=== PATIENT | male | born 1985 | race Caucasian/White ===

== ENCOUNTER 2024-05-28 17:19 | Inpatient (IN) | payer OTHER ==
[~2024-05-28] VITALS: Ht 172.7 cm; Wt 73.0 kg
--- NOTE | 2024-05-28 19:14 | ED.PDOC ---
Altered Mental Status HPI Comments 39-year-old male with mother via EMS for altered level of consciousness. Per mother, patient has history of polycystic kidney disease status post bilateral kidney transplant, on dialysis every other day. Noted for the past 3 days patient has been having episodes of nausea, vomiting, and diarrhea. Could not keep any food or liquids down. Patient started becoming confused and disoriented. Mother's concern of possible food poisoning. Patient underwent dialysis today. Hypotension at home (70s/40s) along with persistent altered mental status prompted mother to call 911. Pt is alert but minimally responsive. Occasionally will answer yes/no, but mostly is confused so hx is limited from pt. Chief Complaint: ALOC Time Seen by MD: 19:12 Primary Care Provider: SRI Mancuso Notes: Nurses Notes Allergies: Coded Allergies: NSAIDs (Verified Allergy, Intermediate, 05/28/24) Penicillins (Verified Allergy, Intermediate, 05/28/24) Sulfa Antibiotics (Verified Allergy, Mild, 05/28/24) Information Source: Relative (Mother) Mode of Arrival: EMS Severity: Unable to Care for Self Timing: Days Duration: Intermittent Prehospital treatment: None Quality: Decreased Alertness, Change in Behavior, Confusion Recent: Nausea, Vomiting History of: Other (End-stage renal disease) Associated Signs and Symptoms: Other (Nausea vomiting and diarrhea) Past Medical History PAST MEDICAL HISTORY: ESRD, HTN Past Medical History (Other): polycystic kidney disease Surgical History (Other): bilateral kidney transplant, dialysis Family History Family History: Family hx of Kidney tami Social History Smoker: Non-Smoker Alcohol: Denies ETOH Use Drugs: Denies Drug Use Lives In: Home Unable to Obtain due to: Altered Mental Status Physical Exam General Appearance: No Apparent Distress HEENT: PERRL/EOMI, Other (dry mucous membranes. no facial asymmetry.) Neck: Full Range of Motion, Non-Tender, Normal Inspection Respiratory: Lungs Clear, No Accessory Muscle Use, No Respiratory Distress, Normal Breath Sounds Cardiovascular: No Edema, No JVD, Regular Rate/Rhythm Breast Exam: Deferred Gastrointestinal: Non Tender, Soft Genitalia: Deferred Pelvic: Deferred Rectal: Deferred Extremities: Normal inspection, Normal range of motion, Non-tender, No pedal edema Neurologic: Alert (oriented x1), Other (moves all extremities, no gross focal deficit. does not consistently follow commands) Cerebellar Function: NOT DONE Reflexes: NOT DONE Skin: Dry, Normal Color, Warm Lymphatic: NOT DONE Was a procedure done? Was a procedure done?: No Differential Diagnosis (ALOC) Differential Diagnosis: Dehydration, Encephalopathy, Sepsis, Hypoxemia, CVA, Mass Lesion, SAH, Drug Overdose, ETOH Intoxication, Renal Failure, Other (enteritis, colitis, diverticulitis, uti) X-Ray, Labs, Meds, VS Vital Signs Date Time Temp Pulse Resp B/P (MAP) Pulse Ox O2 Delivery O2 Flow Rate FiO2 05/29/24 03:57 85/42 05/29/24 02:46 85 21 110/66 (81) 97 05/29/24 01:49 100 31 85/33 (50) 97 05/28/24 23:51 87 16 90 Simple Mask* 6 50 05/28/24 23:39 109 12 100/47 (64) 92 05/28/24 21:46 98 12 109/58 (75) 90 05/28/24 20:30 86 15 118/60 05/28/24 20:21 98.5 88 16 116/100 (105) 74 98.5 05/28/24 19:45 88 22 116/100 05/28/24 17:45 97.9 105 18 116/72 (87) 98 05/28/24 17:27 110 Lab Test 05/29/24 04:30 05/28/24 22:19 05/28/24 21:55 05/28/24 21:20 Range/Units White Blood Count Pending Red Blood Count Pending Hemoglobin Pending Hematocrit Pending Mean Corpuscular Volume Pending Mean Corpuscular Hemoglobin Pending Mean Corpuscular Hemoglobin Concent Pending Red Cell Distribution Width Pending Platelet Count Pending Mean Platelet Volume Pending Neutrophils (%) (Auto) Pending Lymphocytes (%) (Auto) Pending Monocytes (%) (Auto) Pending Basophils (%) (Auto) Pending Neutrophils # (Auto) Pending Lymphocytes # (Auto) Pending Monocytes # (Auto) Pending Sodium Level Pending Potassium Level Pending Chloride Level Pending Carbon Dioxide Level Pending Anion Gap Pending Blood Urea Nitrogen Pending Creatinine Pending Glomerular Filtration Rate Calc Pending BUN/Creatinine Ratio Pending Serum Glucose Pending Calcium Level Pending Total Bilirubin Pending Aspartate Amino Transferase (AST) Pending Alanine Aminotransferase (ALT) Pending Alkaline Phosphatase Pending Total Protein Pending Albumin Pending Troponin I High Sensitivity 38 34 </=54 ng/L Influenza Type A Antigen Negative Negative Influenza Type B Antigen Negative Negative SARS-CoV-2 Antigen (Rapid) Negative NEGATIVE Lactic Acid Level 3.5 *H 0.4-2.0 mmol/L Test 05/28/24 18:58 05/28/24 18:30 Range/Units Lactic Acid Level 3.7 *H 0.4-2.0 mmol/L Ammonia < 10 L 11-32 umol/L White Blood Count 9.3 4.4-10.8 10^3/uL Red Blood Count 5.77 4.5-5.90 10^6/uL Hemoglobin 20.1 H 13.5-17.5 g/dL Hematocrit 57.9 H 41.0-53.0 % Mean Corpuscular Volume 100.4 H 80.0-100.0 fL Mean Corpuscular Hemoglobin 34.8 H 28.0-32.0 pg Mean Corpuscular Hemoglobin Concent 34.7 32.0-36.0 g/dL Red Cell Distribution Width 16.3 H 11.8-14.3 % Platelet Count 183 140-450 10^3/uL Mean Platelet Volume 8.0 6.9-10.8 fL Neutrophils (%) (Auto) 67.3 37.0-80.0 % Lymphocytes (%) (Auto) 18.9 10.0-50.0 % Monocytes (%) (Auto) 13.4 H 0.0-12.0 % Eosinophils (%) (Auto) 0.1 0.0-7.0 % Basophils (%) (Auto) 0.3 0.0-2.0 % Neutrophils # (Auto) 6.3 1.6-8.6 10 ^3/uL Lymphocytes # (Auto) 1.8 0.4-5.4 10 ^3/uL Monocytes # (Auto) 1.3 0-1.3 10 ^3/uL Eosinophils # (Auto) 0 0-0.8 10 ^3/uL Basophils # (Auto) 0 0-0.2 10 ^3/uL Nucleated Red Blood Cells 0.4 % Platelet Estimate Adequate Macrocytosis Slight Sodium Level 132 L 136-145 mmol/L Potassium Level 3.8 3.5-5.1 mmol/L Chloride Level 86 L 98-107 mmol/L Carbon Dioxide Level 28 20-31 mmol/L Anion Gap 18 H 5-15 Blood Urea Nitrogen 37 H 9-23 mg/dL Creatinine 8.32 H 0.700-1.30 mg/dL Glomerular Filtration Rate Calc 8 >90 mL/min BUN/Creatinine Ratio 4.4 L 10.0-20.0 Serum Glucose 76 74-106 mg/dL Calcium Level 11.0 H 8.7-10.4 mg/dL Total Bilirubin 1.0 0.2-1.0 mg/dL Aspartate Amino Transferase (AST) 18 13-40 U/L Alanine Aminotransferase (ALT) 12 7-40 U/L Alkaline Phosphatase 113 46-116 U/L Troponin I High Sensitivity 33 </=54 ng/L Total Protein 9.1 H 5.7-8.2 g/dL Albumin 4.8 3.2-4.8 g/dL Plasma/Serum Blood Alcohol 4.3 <10 mg/dL Current Medications Medications (Trade) Dose Ordered Sig/Jhoan Route Start Time Stop Time Status Last Admin Sodium Chloride 1,000 ml @ 1,000 mls/hr Q1H ONCE IV 05/28/24 19:15 05/28/24 20:14 DC 05/28/24 19:15 Ondansetron HCl (Zofran) 4 mg ONCE ONCE IV 05/28/24 19:15 05/28/24 19:16 DC 05/28/24 19:15 Morphine Sulfate 2 mg ONCE ONCE IV 05/28/24 19:15 05/28/24 19:16 DC 05/28/24 19:45 Famotidine (Pepcid Injection) 20 mg ONCE ONCE IV 05/28/24 19:15 05/28/24 19:16 DC 05/28/24 19:15 Lorazepam (Ativan Inj) 2 mg ONCE ONCE IV 05/28/24 20:30 05/28/24 21:04 DC 05/28/24 20:30 Lorazepam (Ativan Inj) 2 mg ONCE ONCE IV 05/28/24 22:00 05/28/24 22:01 DC 05/28/24 22:09 Diphenhydramine HCl (Benadryl Injection) 25 mg ONCE ONCE IV 05/28/24 22:00 05/28/24 22:01 DC 05/28/24 22:09 Sodium Chloride 1,000 ml @ 1,000 mls/hr Q1H ONCE IV 05/29/24 02:00 05/29/24 02:59 DC 05/29/24 02:02 Cefepime HCl 50 ml @ 12.5 mls/hr ONCE ONCE IV 05/29/24 03:45 05/29/24 07:44 05/29/24 03:45 Norepinephrine Bitartrate 250 ml @ 3.75 mls/hr Q24H IV 05/29/24 03:45 05/29/24 03:57 CHEST RADIOGRAPH Indication: aloc Technique: Single frontal view of the chest was obtained Comparison: None Findings/ IMPRESSION: Surgical clips projecting over the superior mediastinum/ lower neck. Prominent interstitial opacities bilaterally diffusely which may be due to mild pulmonary edema. No pleural effusions. No pneumothorax. EXAM: CT HEAD WITHOUT CONTRAST INDICATION: aloc TECHNIQUE: CT of the head without intravenous contrast. Radiation Dose : 1. Head: CT Dose: CTDI volume is 69.01 mGy. Dose-length product is 2426.03 mGy*cm The dose indicators for CT are the volume Computed Tomography (CT) Dose Index (CTDIvol) and the Dose Length Product (DLP), and are measured in units of mGy and mGy-cm, respectively. These indicators are not patient dose, but values generated from the CT scanner acquisition factors. The report includes radiation exposure data for exposures received during this examination. COMPARISON: None FINDINGS: There is no evidence of acute intracranial hemorrhage, extra-axial collection, mass effect, midline shift, herniation or hydrocephalus. The ventricles, sulci and cisterns are age appropriate. The jarquin-white differentiation is intact. Patchy periventricular and subcortical white matter hypoattenuation is nonspecific but may be related to small vessel ischemic disease. The visualized paranasal sinuses and mastoid air cells are clear. The surrounding soft tissues and osseous structures are unremarkable. IMPRESSION: Limited evaluation due to motion artifact. No definitive evidence of acute intracranial abnormalities. Exam: CT CT AB PEL WO CON-NO ORAL OR IV History: abd pain nvd Comparison Study: None TECHNIQUE: Multidetector CT of the abdomen and pelvis was performed from lung bases to pubic symphysis. Imaging was performed without IV contrast. Axial, coronal, and sagittal multiplanar reformats were obtained from the axial data set by the technologist. RADIATION DOSE: DLP 619.88 mGy.cm; CTDI vol 11.84 mGy. Findings: Lungs: The lung bases are clear. Heart: The visualized heart is unremarkable. No cardiomegaly or pericardial effusion. Liver: Unremarkable. Gallbladder: Unremarkable. Spleen: Unremarkable Pancreas: Unremarkable Adrenals: Unremarkable Kidneys: Marked bilateral renal atrophy. Bilateral renal cysts. GI tract: Diverticulosis without evidence of acute diverticulitis. : Unremarkable. Vasculature: Moderate aortoiliac atherosclerosis. Lymphadenopathy: Absent Peritoneum: No ascites. 4.7 x 4.2 cm calcified lesion in the right lower quadrant. Musculoskeletal: Unremarkable Soft tissues: Unremarkable Impression: 1. No acute abdominopelvic abnormalities. 2. Diverticulosis without evidence of acute diverticulitis. 3. 4.7 x 4.2 cm calcified lesion in the right lower quadrant, of uncertain etiology. X-Ray, Labs, Meds, VS Comment 39-year-old male with a history of polycystic kidney disease on dialysis presenting with altered mental status, nausea, vomiting and diarrhea Vitals remarkable for heart rate 110 Exam remarkable for confusion, minimal responses to questions, inability to follow commands at times Rhythm strip independently interpreted by me: Sinus tach, rate 110, no ectopy. Head CT 1.: IMPRESSION: Limited evaluation due to motion artifact. No definitive evidence of acute intracranial abnormalities. Chest x-ray IMPRESSION: Surgical clips projecting over the superior mediastinum/ lower neck. Prominent interstitial opacities bilaterally diffusely which may be due to mild pulmonary edema. No pleural effusions. No pneumothorax. CT abdomen and pelvis Impression: 1. No acute abdominopelvic abnormalities. 2. Diverticulosis without evidence of acute diverticulitis. 3. 4.7 x 4.2 cm calcified lesion in the right lower quadrant, of uncertain etiology. Head CT 2.: CBC unremarkable, CMP remarkable for sodium 132, chloride 86, BUN 37, creatinine 8.32, troponin negative, ammonia normal, alcohol negative Patient does not produce urine. Patient treated with the following in the ED: 1 L 0.9 normal saline IV bolus, morphine 2 mg IV, Zofran 4 mg IV, Ativan 2 mg IV x2, Benadryl 25 mg IV On re-evaluation, patient resting comfortably with stable vitals. Blood pressure 109/58, oxygen saturation 95 % on 4 L Plan was to transfer the patient to [facility] for neurology evaluation. Case discussed with Dr. Bingham at [facility]. Patient's blood pressure began to down trend, and there was no available [facility] bed within 30 miles, so we were authorized to admit the patient here. Authorization [id number] Time of 1ST Reevaluation: 19:05 Reevaluation 1ST: Unchanged Patient Education/Counseling: Other (Patient confused and disoriented) Family Education/Counseling: Diagnosis, Treatment Sepsis Sepsis Reasesment Focused Exam Sepsis focused exam: focus exam completed (343 blood pressure 80s systolic despite 2 L normal saline. Antibiotic coverage and Levophed infusion ordered.), time: (344) Departure 1 Departure Time of Disposition: 22:55 Impression: Primary Impression: Altered mental status Qualified Codes: R41.82 - Altered mental status, unspecified Additional Impressions: Nausea, vomiting, and diarrhea Sepsis Qualified Codes: A41.9 - Sepsis, unspecified organism; R65.21 - Severe sepsis with septic shock; G93.41 - Metabolic encephalopathy Disposition: 02 SHORT TERM HOSPITAL Admit to: [facility] Condition: Serious Critical Care Note Critical Care Time?: Yes (35 min-critical care time only) Critical care comment: Critical care time including multiple bedside re-evaluations, review of lab and imaging studies, and discussion of the case with the accepting provider. Patient is high risk for respiratory, metabolic and/or neurologic decompensation. Stability Stability form required: No Heart Score Heart Score: Heart Score Response (Comments) Value History N/A 0 EKG N/A 0 Age N/A 0 Risk Factors N/A 0 Troponin N/A 0 Total 0 I personally scribed for XANDER STEVENSON MD ([facility] on 05/28/24 at 19:14. Electronically submitted by Aron Leon ([facility] I personally scribed for MARCUS VILLALTA MD ([facility] on 05/28/24 at 21:42. Electronically submitted by Aron Leon ([facility] I personally scribed for MARCUS VILLALTA MD ([facility]) on 05/29/24 at 04:49. Electronically submitted by Aron Leon ([facility]). XANDER SETVENSON MD May 28, 2024 19:14 MARCUS VILLALTA MD May 28, 2024 19:34
[2024-05-28] MEDS: FAMOTIDINE (10MG/ML) 2ML VL IV ONE (19:15)
[2024-05-28] MEDS: SODIUM CHLORIDE 0.9% 1,000 ML IV ONE (19:15)
[2024-05-28] MEDS: ONDANSETRON HCL 4 MG/2 ML VIAL IV ONE (19:15)
[2024-05-28 19:37] LABS: Alanine Aminotransferase 12 U/L (7-40); Albumin 4.8 g/dL (3.2-4.8); Alkaline Phosphatase 113 U/L (46-116); Anion Gap 18 (5-15); Aspartate Aminotransferase 18 U/L (13-40); BUN/Creatinine Ratio 4.4 (10.0-20.0); Basophils # (auto) 0 10 ^3/uL (0-0.2); Basophils % (auto) 0.3 % (0.0-2.0); Blood Alcohol 4.3 mg/dL (<10); Carbon Dioxide 28 mmol/L (20-31); Eosinophils # (auto) 0 10 ^3/uL (0-0.8); Eosinophils % (auto) 0.1 % (0.0-7.0); Glucose 76 mg/dL (74-106); Hematocrit 57.9 % (41.0-53.0); Hemoglobin 20.1 g/dL (13.5-17.5); Lymphocytes # (auto) 1.8 10 ^3/uL (0.4-5.4); Lymphocytes % (auto) 18.9 % (10.0-50.0); Mean Corpuscular Hemoglobin 34.8 pg (28.0-32.0); Mean Corpuscular Hgb Conc. 34.7 g/dL (32.0-36.0); Mean Corpuscular Volume 100.4 fL (80.0-100.0); Monocytes # (auto) 1.3 10 ^3/uL (0-1.3); Monocytes % (auto) 13.4 % (0.0-12.0); Neutrophils # (auto) 6.3 10 ^3/uL (1.6-8.6); Neutrophils % (auto) 67.3 % (37.0-80.0); Nucleated Red Blood Cells % 0.4 %; Platelet Count (auto) 183 10^3/uL (140-450); Potassium 3.8 mmol/L (3.5-5.1); Red Blood Cells 5.77 10^6/uL (4.5-5.90); Red Cell Distribution Width 16.3 % (11.8-14.3); White Blood Cell 9.3 10^3/uL (4.4-10.8)
--- NOTE | 2024-05-28 19:37 | DVH ---
CHEST RADIOGRAPH Indication: aloc Technique: Single frontal view of the chest was obtained Comparison: None Findings/ IMPRESSION: Surgical clips projecting over the superior mediastinum/ lower neck. Prominent interstitial opacities bilaterally diffusely which may be due to mild pulmonary edema. No pleural effusions. No pneumothora x.
--- NOTE | 2024-05-28 19:39 | DVH ---
EXAM: CT HEAD WITHOUT CONTRAST INDICATION: aloc TECHNIQUE: CT of the head without intravenous contrast. Radiation Dose : 1. Head: CT Dose: CTDI volume is 69.01 mGy. Dose-length product is 2426.03 mGy*cm The dose indicators for CT are the volume Computed Tomography (CT) Dose Index (CTDIvol) and the Dose Length Product (DLP), and are measured in units of mGy and mGy-cm, respectively. These indicators are not patient dose, but values generated from the CT scanner acquisition factors. The report includes radiation exposure data for exposures received during this examination. COMPARISON: None FINDINGS: There is no evidence of acute intracranial hemorrhage, extra-axial collection, mass effect, midline s hift, herniation or hydrocephalus. The ventricles, sulci and cisterns are age appropriate. The jarquin-white differentiation is intact. Patchy periventricular and subcortical white matter hypoattenuation is nonspecific but may be related to small vessel ischemic disease. The visualized paranasal sinuses and mastoid air cells are clear. The surrounding soft tissues and osseous structures are unremarkable. IMPRESSION: Limited evaluation due to motion artifact. No definitive evidence of acute intracranial abnormalities .
[2024-05-28] MEDS: MORPHINE SULFATE INJ 2 MG/ml SYRG IV ONE (19:45)
--- NOTE | 2024-05-28 19:45 | DVH ---
Exam: CT CT AB PEL WO CON-NO ORAL OR IV History: abd pain nvd Comparison Study: None TECHNIQUE: Multidetector CT of the abdomen and pelvis was performed from lung bases to pubic symphysi s. Imaging was performed without IV contrast. Axial, coronal, and sagittal multiplanar reformats were obtained from the axial data set by the technologist. RADIATION DOSE: DLP 619.88 mGy.cm; CTDI vol 11.84 mGy. Findings: Lungs: The lung bases are clear. Heart: The visualized heart is unremarkable. No cardiomegaly or pericardial effusion. Liver: Unremarkable. Gallbladder: Unremarkable. Spleen: Unremarkable Pancreas: Unremarkable Adrenals: Unremarkable Kidneys: Marked bilateral renal atrophy. Bilateral renal cysts. GI tract: Diverticulosis without evidence of acute diverticulitis. : Unremarkable. Vasculature: Moderate aortoiliac atherosclerosis. Lymphadenopathy: Absent Peritoneum: No ascites. 4.7 x 4.2 cm calcified lesion in the right lower quadrant. Musculoskeletal: Unremarkable Soft tissues: Unremarkable Impression: 1. No acute abdominopelvic abnormalities. 2. Diverticulosis without evidence of acute diverticulitis. 3. 4.7 x 4.2 cm calcified lesion in the right lower quadrant, of uncertain etiology.
[2024-05-28 19:47] LABS: Blood Urea Nitrogen 37 mg/dL (9-23); Chloride 86 mmol/L (98-107); Sodium 132 mmol/L (136-145); Total Protein 9.1 g/dL (5.7-8.2)
[2024-05-28 19:49] LABS: Lactic Acid w/Reflex 3.7 mmol/L (0.4-2.0)
[2024-05-28 20:16] LABS: Macrocytosis Slight; Platelet Estimate Adequate
[2024-05-28] MEDS: LORazepam 2MG/ML-1ML VIAL IV ONE ×2 (20:30→22:09)
[2024-05-28] MEDS: diphenhdrAMINE HCL 50 MG/1 ML VL IV ONE (22:09)
[2024-05-28 23:26] LABS: COVID19 ANTIGEN SOFIA FIA NEGATIVE (NEGATIVE); Rapid Influenza A Negative (Negative); Rapid Influenza B Negative (Negative)
--- NOTE | 2024-05-28 23:27 | DVH ---
EXAM: CT HEAD WITHOUT CONTRAST INDICATION: repeat for aloc TECHNIQUE: CT of the head without intravenous contrast. Radiation Dose : 1. Head: CT Dose: CTDI volume is 66 mGy. Dose-length product is 1430 mGy*cm The dose indicators for CT are the volume Computed Tomography (CT) Dose Index (CTDIvol) and the Dose Length Product (DLP), and are measured in units of mGy and mGy-cm, respectively. These indicators are not patient dose, but values generated from the CT scanner acquisition factors. The report includes radiation exposure data for exposures received during this examination. COMPARISON: CT HEAD WITHOUT CONTRAST on DOS: 05/28/24 FINDINGS: There is no evidence of acute intracranial hemorrhage, extra-axial collection, mass effect, midline s hift, herniation or hydrocephalus. The ventricles, sulci and cisterns are age appropriate. The jarquin-white differentiation is intact. Patchy periventricular and subcortical white matter hypoattenuation is nonspecific but may be related to small vessel ischemic disease. The visualized paranasal sinuses and mastoid air cells are clear. The surrounding soft tissues and osseous structures are unremarkable. IMPRESSION: No acute intracranial abnormality.
[2024-05-28 23:51] VITALS: PULSE 87; RESP 16; O2SAT 90
[2024-05-29] MEDS: SODIUM CHLORIDE 0.9% 1,000 ML IV ONE (02:02)
[2024-05-29] MEDS ORDERED: VANCOMYCIN 1GM/250ML KIT 250 ML IV ONE (03:45)
[2024-05-29] MEDS: CEFEPIME 1GM/ 50ML 50 ML IV ONE (03:45)
[2024-05-29] MEDS: NOREPINEPHRINE 8 MG/250ML KIT 250 ML IV SCH (03:57)
[2024-05-29] MEDS ORDERED: DOCUSATE SOD 100 MG CAP PO PRN (04:15)
[2024-05-29] MEDS ORDERED: VANCOMYCIN PER PHARMACY 0 MG IV SCH (04:15)
[2024-05-29] MEDS ORDERED: LORazepam 2MG/ML-1ML VIAL IV PRN (04:15)
[2024-05-29] MEDS ORDERED: ONDANSETRON HCL 4 MG/2 ML VIAL IV PRN (04:15)
[2024-05-29] MEDS ORDERED: diphenhdrAMINE HCL 50 MG/1 ML VL IV PRN (04:15)
[2024-05-29] MEDS ORDERED: DEXTROSE (50%) 50ML SYRG IV PRN (04:15)
[2024-05-29] MEDS ORDERED: ACETAMINOPHEN 325 MG TAB PO PRN (04:15)
[2024-05-29] MEDS ORDERED: HYDROcodone-ACET 5/325MG TAB PO PRN (04:15)
[2024-05-29] MEDS: VANCOMYCIN 1GM/250ML KIT 250 ML IV ONE (04:45)
[2024-05-29 04:48] LABS: Eosinophils # (auto) 0 10 ^3/uL (0-0.8); Hematocrit 50.2 % (41.0-53.0); Hemoglobin 16.8 g/dL (13.5-17.5); Mean Corpuscular Hgb Conc. 33.5 g/dL (32.0-36.0); Monocytes # (auto) 1.3 10 ^3/uL (0-1.3); Red Cell Distribution Width 16.4 % (11.8-14.3); White Blood Cell 10.5 10^3/uL (4.4-10.8)
[2024-05-29 04:49] LABS: Basophils # (auto) 0.1 10 ^3/uL (0-0.2); Basophils % (auto) 0.5 % (0.0-2.0); Eosinophils % (auto) 0.1 % (0.0-7.0); Lymphocytes # (auto) 1.1 10 ^3/uL (0.4-5.4); Mean Corpuscular Hemoglobin 34.4 pg (28.0-32.0); Mean Corpuscular Volume 102.6 fL (80.0-100.0); Monocytes % (auto) 12.7 % (0.0-12.0); Neutrophils # (auto) 7.9 10 ^3/uL (1.6-8.6); Neutrophils % (auto) 75.7 % (37.0-80.0); Nucleated Red Blood Cells % 0.2 %; Platelet Count (auto) 201 10^3/uL (140-450); Red Blood Cells 4.89 10^6/uL (4.5-5.90)
[2024-05-29 04:59] LABS: Alanine Aminotransferase 11 U/L (7-40); Alkaline Phosphatase 89 U/L (46-116); Anion Gap 10 (5-15); Aspartate Aminotransferase 18 U/L (13-40); BUN/Creatinine Ratio 4.5 (10.0-20.0); Calcium 9.2 mg/dL (8.7-10.4); Carbon Dioxide 28 mmol/L (20-31); Glucose 85 mg/dL (74-106); Potassium 5.1 mmol/L (3.5-5.1)
[2024-05-29 05:00] LABS: Bilirubin, Total 0.4 mg/dL (0.2-1.0); Total Protein 7.4 g/dL (5.7-8.2)
[2024-05-29 05:07] LABS: Blood Urea Nitrogen 43 mg/dL (9-23); Chloride 95 mmol/L (98-107); Sodium 133 mmol/L (136-145)
--- NOTE | 2024-05-29 05:12 | DVHHP2 ---
History of Present Illness Reason for Visit: Hypotension History of Present Illness The patient is a 39-year-old male with past medical history of end-stage renal disease on hemodialysis, hypertension, and polycystic kidney disease status post bilateral kidney transplant presented to [facility] ED for evaluation of altered level of consciousness. As reported by mother, patient is on dialysis every other day, noted for the past 3 days he has been having episodes of nausea, vomiting, diarrhea, unable to keep any food or liquids down, becoming more confused and disoriented. Patient underwent dialysis today and developed hypotensive at home (70s/40s) along with persistent altered mental status prompted mother to call 911. Patient was seen and evaluated in the ED, laboratory data shows WBC 9.3, platelets 183, hemoglobin 20.1, hematocrit 57.9, sodium 132, potassium 3.8, BUN 37, creatinine 8.32, GFR 37, glucose 76, anion gap 18, calcium 11.0, troponin 33, alcohol 4.3, blood pressure 85/42, heart rate 85, temperature 98.5 F, O2 saturation 90% on simple mass. Head CT showed no acute intracranial abnormality. Patient was started on IV Levophed, please see medication orders section in the computer. On my assessment, no diaphoresis, no dizziness, currently on oxygen, no diarrhea, no nausea or vomiting at this moment, no fever, no chills. Patient was admitted for further evaluation and medical management. Past Medical History ESRD, HTN, Polycystic kidney disease Past Surgical History Bilateral kidney transplant, dialysis Family History Reviewed, noncontributory to the management of this case. Past Social History The patient lives at home, denies smoking, alcohol or illicit drugs abuse. Review of Systems Constitutional: Yes: Weakness; No: Fever, Chills, Sweats, Malaise, Other Eyes: No: Pain, Vision change, Conjunctivae inflammation, Eyelid inflammation, Other, Redness ENT: No: Ear pain, Ear discharge, Nose pain, Nose discharge, Nose congestion, Mouth pain, Mouth swelling, Throat pain, Throat swelling, Other Respiratory: Shortness of breath; No: Cough, Dry, SOB with excertion, Wheezing, Hemoptysis, Pleuritic Pain, Sputum, Wheezing, Other Cardiovascular: No: Chest Pain, Palpitations, Orthopnea, Paroxysmal Noc. Dyspnea, Edema, Lt Headedness, Other Gastrointestinal: Nausea, Vomiting, Diarrhea; No: Abdominal Pain, Constipation, Melena, Hematochezia, Other Genitourinary: No Dysuria, No Frequency, No Incontinence, No Hematuria, No Retention, No Other Musculoskeletal: No: other, neck pain, shoulder pain, arm pain, back pain, hand pain, leg pain, foot pain Skin: No: Rash, Lesions, Jaundice, Bruising, Other Neurological: No: Weakness, Numbness, Incoordination, Change in speech, Confusion, Seizures, Other Allergies: Coded Allergies: NSAIDs (Verified Allergy, Intermediate, 05/28/24) Penicillins (Verified Allergy, Intermediate, 05/28/24) Sulfa Antibiotics (Verified Allergy, Mild, 05/28/24) Medications Current Medications Medications Dose Ordered Sig/Jhoan Route Start Time Stop Time Status Last Admin Dose Admin Norepinephrine Bitartrate 250 ml @ 3.75 mls/hr Q24H IV 05/29/24 03:45 05/29/24 03:57 3.75 MLS/HR Sevelamer HCl 800 mg TIDWM PO 05/29/24 08:00 Multivit/Ca Carb/ B Cmplx/FA/Prenat 1 tab DAILY PO 05/29/24 10:00 Vancomycin HCl 0 ml @ 0 mls/hr UD IV 05/29/24 04:15 UNV Famotidine 20 mg EOD IV 05/31/24 10:00 Lorazepam 1 mg Q8HP PRN IV 05/29/24 04:15 Diphenhydramine HCl 25 mg Q4HP PRN IV 05/29/24 04:15 Diagnostic Test (Pha) 1 strip IQ4HR 05/29/24 08:00 Insulin Human Regular IQ4HR SC 05/29/24 08:00 Dextrose 50 ml UD PRN IV 05/29/24 04:15 Sodium Chloride 10 ml Q8HR IV 05/29/24 06:00 Acetaminophen/ Hydrocodone Bitart 1 tab Q4HP PRN PO 05/29/24 04:15 Ondansetron HCl 4 mg Q4HP PRN IV 05/29/24 04:15 Docusate Sodium 100 mg BIDPRN PRN PO 05/29/24 04:15 Acetaminophen 650 mg Q6HP PRN PO 05/29/24 04:15 Exam Vital Signs Vital Signs Date Time Temp Pulse Resp B/P (MAP) Pulse Ox O2 Delivery O2 Flow Rate FiO2 05/29/24 05:00 102 17 83/55 (64) 98 05/28/24 23:51 Simple Mask* 6 50 05/28/24 20:21 98.5 98.5 General Appearance: Alert, Cooperative, No acute distress, Other (Oriented x2) HEENT: Atraumatic, PERRLA, EOMI, Mucous membr. moist/pink Respiratory: Normal air movement Cardiovascular: Regular rate, Normal S1, Normal S2, No murmurs Abdominal: Normal bowel sounds, Soft, No tenderness, No hepatospenomegaly, No masses Extremities: No clubbing, No cyanosis, No edema, Normal pulses, No tenderness/swelling Skin: No rashes, No breakdown, No significant lesion Neuro: Normal speech, Normal tone, Sensation intact, Cranial nerves 3-12 NL, Reflexes 2+, Other (Generalized weakness) Psych/Mental Status: Mental status NL, Mood NL Labs/Xrays Labs Test 05/29/24 04:30 05/28/24 22:19 05/28/24 21:55 05/28/24 21:20 Range/Units White Blood Count 10.5 4.4-10.8 10^3/uL Red Blood Count 4.89 4.5-5.90 10^6/uL Hemoglobin 16.8 # 13.5-17.5 g/dL Hematocrit 50.2 # 41.0-53.0 % Mean Corpuscular Volume 102.6 H 80.0-100.0 fL Mean Corpuscular Hemoglobin 34.4 H 28.0-32.0 pg Mean Corpuscular Hemoglobin Concent 33.5 32.0-36.0 g/dL Red Cell Distribution Width 16.4 H 11.8-14.3 % Platelet Count 201 140-450 10^3/uL Mean Platelet Volume 8.0 6.9-10.8 fL Neutrophils (%) (Auto) 75.7 37.0-80.0 % Lymphocytes (%) (Auto) 11.0 10.0-50.0 % Monocytes (%) (Auto) 12.7 H 0.0-12.0 % Eosinophils (%) (Auto) 0.1 0.0-7.0 % Basophils (%) (Auto) 0.5 0.0-2.0 % Neutrophils # (Auto) 7.9 1.6-8.6 10 ^3/uL Lymphocytes # (Auto) 1.1 0.4-5.4 10 ^3/uL Monocytes # (Auto) 1.3 0-1.3 10 ^3/uL Eosinophils # (Auto) 0 0-0.8 10 ^3/uL Basophils # (Auto) 0.1 0-0.2 10 ^3/uL Nucleated Red Blood Cells 0.2 % Sodium Level 133 L 136-145 mmol/L Potassium Level 5.1 3.5-5.1 mmol/L Chloride Level 95 L 98-107 mmol/L Carbon Dioxide Level 28 20-31 mmol/L Anion Gap 10 5-15 Blood Urea Nitrogen 43 H 9-23 mg/dL Creatinine 9.47 H 0.700-1.30 mg/dL Glomerular Filtration Rate Calc 7 >90 mL/min BUN/Creatinine Ratio 4.5 L 10.0-20.0 Serum Glucose 85 74-106 mg/dL Calcium Level 9.2 8.7-10.4 mg/dL Total Bilirubin 0.4 0.2-1.0 mg/dL Aspartate Amino Transferase (AST) 18 13-40 U/L Alanine Aminotransferase (ALT) 11 7-40 U/L Alkaline Phosphatase 89 46-116 U/L Total Protein 7.4 5.7-8.2 g/dL Albumin 4.0 3.2-4.8 g/dL Troponin I High Sensitivity 38 </=54 ng/L Influenza Type A Antigen Negative Negative Influenza Type B Antigen Negative Negative SARS-CoV-2 Antigen (Rapid) Negative NEGATIVE Lactic Acid Level 3.5 *H 0.4-2.0 mmol/L Test 05/28/24 18:58 05/28/24 18:30 Range/Units Ammonia < 10 L 11-32 umol/L Platelet Estimate Adequate Macrocytosis Slight Plasma/Serum Blood Alcohol 4.3 <10 mg/dL PATIENT: COLEMAN TEAGUE ACCT: [id number] UNIT: [id number] : 1985 LOC: ER ROOM / BED: / AGE / SEX: 39 / M ADM STATUS: REG ER SERVICE [id number] ORDERING PHYSICIAN: MARCUS VILLALTA MD PROCEDURE(s): ABPL - CT AB PEL WO CON-NO ORAL OR IV REASON: abd pain nvd ORDER NUMBER(s): [id number], ACCESSION NUMBER(s): [id number] Exam: CT CT AB PEL WO CON-NO ORAL OR IV History: abd pain nvd Comparison Study: None TECHNIQUE: Multidetector CT of the abdomen and pelvis was performed from lung bases to pubic symphysis. Imaging was performed without IV contrast. Axial, coronal, and sagittal multiplanar reformats were obtained from the axial data set by the technologist. RADIATION DOSE: DLP 619.88 mGy.cm; CTDI vol 11.84 mGy. Findings: Lungs: The lung bases are clear. Heart: The visualized heart is unremarkable. No cardiomegaly or pericardial effusion. Liver: Unremarkable. Gallbladder: Unremarkable. Spleen: Unremarkable Pancreas: Unremarkable Adrenals: Unremarkable Kidneys: Marked bilateral renal atrophy. Bilateral renal cysts. GI tract: Diverticulosis without evidence of acute diverticulitis. : Unremarkable. Vasculature: Moderate aortoiliac atherosclerosis. Lymphadenopathy: Absent Peritoneum: No ascites. 4.7 x 4.2 cm calcified lesion in the right lower quadrant. Musculoskeletal: Unremarkable Soft tissues: Unremarkable Impression: 1. No acute abdominopelvic abnormalities. 2. Diverticulosis without evidence of acute diverticulitis. 3. 4.7 x 4.2 cm calcified lesion in the right lower quadrant, of uncertain etiology. ORDERING PHYSICIAN: MARCUS VILLALTA MD PROCEDURE(s): HWOCT - HEAD WITHOUT CONTRAST REASON: repeat for aloc ORDER NUMBER(s): [id number], ACCESSION NUMBER(s): [id number] EXAM: CT HEAD WITHOUT CONTRAST INDICATION: repeat for aloc TECHNIQUE: CT of the head without intravenous contrast. Radiation Dose: 1. Head: CT Dose: CTDI volume is 66 mGy. Dose-length product is 1430 mGy*cm The dose indicators for CT are the volume Computed Tomography (CT) Dose Index (CTDIvol) and the Dose Length Product (DLP), and are measured in units of mGy and mGy-cm, respectively. These indicators are not patient dose, but values generated from the CT scanner acquisition factors. The report includes radiation exposure data for exposures received during this examination. COMPARISON: CT HEAD WITHOUT CONTRAST on DOS: 05/28/24 FINDINGS: There is no evidence of acute intracranial hemorrhage, extra-axial collection, mass effect, midline shift, herniation or hydrocephalus. The ventricles, sulci and cisterns are age appropriate. The jarquin-white differentiation is intact. Patchy periventricular and subcortical white matter hypoattenuation is nonspecific but may be related to small vessel ischemic disease. The visualized paranasal sinuses and mastoid air cells are clear. The surrounding soft tissues and osseous structures are unremarkable. IMPRESSION: No acute intracranial abnormality. ORDERING PHYSICIAN: MARCUS VILLALTA MD PROCEDURE(s): CXRP - CHEST PORTABLE REASON: aloc ORDER NUMBER(s): [id number], ACCESSION NUMBER(s): [id number] CHEST RADIOGRAPH Indication: aloc Technique: Single frontal view of the chest was obtained Comparison: None Findings/ IMPRESSION: Surgical clips projecting over the superior mediastinum/lower neck. Prominent interstitial opacities bilaterally diffusely which may be due to mild pulmonary edema. No pleural effusions. No pneumothorax. Assessment/Plan Assessment/Plan Altered mental status Generalized weakness Altered mental status, unspecified Nausea, vomiting, and diarrhea Sepsis, unspecified organism Severe sepsis with septic shock Metabolic encephalopathy Plan 1. Admit to intensive care unit 2. Breathing treatment 3. Pain control management 4. IV antibiotic management 5. Management of fluids and electrolytes 6. Consultation for nephrology/cardiology 7. Diagnostic test head CT 8. DVT prophylaxis on heparin 9. Repeat labs CBC, CMP in a.m. 10. Home medication reviewed and reconciled 11. Continue with current medical management 12. Treatment plan discussed with patient and RN. Patient/mother verbalized understanding. Plan discussed with: Patient, Other (RN) My Orders Orders - MOISES MCKEON DNP Procedure Category Date Status Time Sevelamer (Renagel) PHA 05/29/24 In Process 08:00 B-Complex W/ C & PHA 05/29/24 In Process Folic Tablet 10:00 Vancomycin Per PHA 05/29/24 Pending Pharmacy 04:15 Lorazepam 2mg/Ml Inj PHA 05/29/24 In Process (Ativan Inj) 04:15 Diphenhdramine PHA 05/29/24 In Process Injection (Benadryl 04:15 *[facility] CONS 05/29/24 Transmitted -[place] 04:14 Glucose Blood PHA 05/29/24 In Process (Accu-Chek Comfort 08:00 Insulin R (Human) PHA 05/29/24 In Process (Insulin R) 08:00 Dextrose 50% Syringe PHA 05/29/24 In Process 04:15 Allergies LUZ MARIA 05/29/24 In Process 04:14 Code Status CODE 05/29/24 Transmitted 04:14 Renal DIET 05/29/24 Transmitted Standard(2gna,3gk,Lopho) Breakfast Sodium Chloride Lock PHA 05/29/24 In Process (Saline Lock Ns) 06:00 Oxygen Per Hour RT 05/29/24 Transmitted 04:14 Hydrocodone-Acet PHA 05/29/24 In Process 5/325mg Tab ([place] 04:15 Ondansetron Hcl PHA 05/29/24 In Process (Zofran) 04:15 Docusate Sodium PHA 05/29/24 In Process Capsule (Colace 04:15 Fall Risk Precautions LUZ MARIA 05/29/[address] 04:14 Complete Blood Count LAB 05/30/24 Verified 04:00 Comprehensive LAB 05/30/24 Verified Metabolic Panel 04:00 Condition: Critical LUZ MARIA 05/29/24 In Process 04:14 Acetaminophen Tablet PHA 05/29/24 In Process (Tylenol Tablet) 04:15 Sequential LUZ MARIA 05/29/24 In Process Compression Device Famotidine Injection PHA 05/31/24 In Process (Pepcid Injection) 10:00 Problem List: (1) Altered mental status (2) Generalized weakness (3) Sepsis, unspecified organism (4) Nausea, vomiting, and diarrhea (5) Severe sepsis with septic shock (6) Metabolic encephalopathy (7) Altered mental status, unspecified Date of Service: May 29, 2024 Billing Provider: MOISES MCKEON DNP Common Visit Codes: [id number] INP/OBS CARE (HIGH) MOISES MCKEON DNP May 29, 2024 05:12
[2024-05-29] MEDS ORDERED: MORPHINE SULFATE INJ 2 MG/ml SYRG IV PRN (05:15)
[2024-05-29] MEDS ORDERED: NITROGLYCERIN 0.4 MG SL TAB SL PRN (05:15)
[2024-05-29] MEDS: SODIUM CHLOR 0.9% PF (SALINE LOCK) 10ML VIAL/SYR IV SCH (05:35)
[2024-05-29 07:50] VITALS: PULSE 95; RESP 19; O2SAT 95
[2024-05-29] MEDS: InsuLIN REG 1unit/0.01ml Soln (100units/ml) SC SCH (08:00)
[2024-05-29] MEDS: ACCU-CHEK COMFORT CURVE STRIP VI SCH (08:11)
[2024-05-29] MEDS: SEVELAMER 800 MG TAB PO SCH (08:16)
[2024-05-29] MEDS: SODIUM CHLORIDE 0.9% 1,000 ML IV SCH ×2 (08:53→17:46)
--- NOTE | 2024-05-29 09:41 | DVHINCON2 ---
Date Seen: May 29, 2024 Referring Physician REBECA Soria Reason for Consultation Hypotension History of Present Illness This is a 39-year-old male patient who presents to emergency room with chief complaint of altered level of mentation. Per the patient, he has been experiencing nausea, vomiting, and diarrhea for approximately three days prior to emergency room arrival. He reports that he underwent dialysis treatment yesterday and staff noticed that he was hypotensive. At that time the patient also became altered and EMS was called and the patient was brought to the emergency room for further evaluation. At the time of assessment, the patient is now alert and oriented x4, and able to answer all questions appropriately. Cardiology has now been consulted for hypotension. Initial twelve lead e lectrocardiogram reveals sinus tachycardia with nonspecific ST segment changes to lateral leads. The patient denies any cardiac symptoms such as chest pain, palpitations, or shortness of breath. Initial troponin level of 34ng/L with flat trend thereafter. Significant past medical history includes hypertension, dyslipidemia, and polycystic kidney disease status post bilateral renal transplant on hemodialysis. Past Medical History Past medical history reviewed. No other significant than mentioned above. Past Surgical History Parathyroidectomy Family History Family history reviewed. Social History Patient has a five pack-year history, quit smoking approximately 15 years ago Patient denies any illicit drug use Patient denies any alcohol use Allergies: Coded Allergies: NSAIDs (Verified Allergy, Intermediate, 05/28/24) Penicillins (Verified Allergy, Intermediate, 05/28/24) Sulfa Antibiotics (Verified Allergy, Mild, 05/28/24) Home Meds Home medications reviewed. Current Medications Current Medications Medications (Trade) Dose Ordered Sig/Jhoan Route PRN Reason Start Time Stop Time Status Last Admin Norepinephrine Bitartrate 250 ml @ 3.75 mls/hr Q24H IV 05/29/24 03:45 05/29/24 03:57 Sevelamer HCl (Renagel) 800 mg TIDWM PO 05/29/24 08:00 05/29/24 08:16 Multivit/Ca Carb/ B Cmplx/FA/Prenat (Nephro-Sirena Tablet) 1 tab DAILY PO 05/29/24 10:00 Vancomycin HCl 0 ml @ 0 mls/hr UD IV 05/29/24 04:15 Famotidine (Pepcid Injection) 20 mg EOD IV 05/31/24 10:00 Lorazepam (Ativan Inj) 1 mg Q8HP PRN IV ANXIETY 05/29/24 04:15 Diphenhydramine HCl (Benadryl Injection) 25 mg Q4HP PRN IV FOR ITCHING 05/29/24 04:15 Diagnostic Test (Pha) (Accu-Chek Comfort Curve T) 1 strip IQ4HR 05/29/24 08:00 05/29/24 08:11 Insulin Human Regular (InsuLIN R) IQ4HR SC 05/29/24 08:00 Dextrose 50 ml UD PRN IV Blood Sugar LESS THAN 60 05/29/24 04:15 Sodium Chloride (Saline Lock Ns) 10 ml Q8HR IV 05/29/24 06:00 05/29/24 05:35 Acetaminophen/ Hydrocodone Bitart ([place] 5/325MG Tab) 1 tab Q4HP PRN PO MODERATE PAIN (4-6 PAIN SCALE) 05/29/24 04:15 Ondansetron HCl (Zofran) 4 mg Q4HP PRN IV NAUSEA / VOMITING 05/29/24 04:15 Docusate Sodium (Colace Capsule) 100 mg BIDPRN PRN PO FOR CONSTIPATION 05/29/24 04:15 Acetaminophen (Tylenol Tablet) 650 mg Q6HP PRN PO PAIN SCALE 1-3 OR TEMP>100.4 05/29/24 04:15 Nitroglycerin (Ntrostat Sublingual) 0.4 mg Q5MINP PRN SL FOR CHEST PAIN 05/29/24 05:15 Morphine Sulfate 2 mg Q30M PRN IV FOR CHEST PAIN 05/29/24 05:15 Sodium Chloride 1,000 ml @ 75 mls/hr [id number] IV 05/29/24 08:30 05/29/24 08:53 Review of Systems Constitutional: No symptom reported Ears, Nose, & Throat: No symptom reported Eyes: No symptom reported Neurological: Altered level of mentation Pulmonary/Respiratory: No symptoms reported Cardiovascular: No symptom reported Gastrointestinal: Nausea, vomiting, diarrhea Genitourinary: No symptom reported Musculoskeletal: No symptom reported Skin: No symptom reported Psychiatric: No symptom reported Endocrine: No symptom reported Hematologic/Lymphatic: No symptom reported Vital Signs Vital Signs Date Time Temp Pulse Resp B/P (MAP) Pulse Ox O2 Delivery O2 Flow Rate FiO2 05/29/24 09:00 85/53 05/29/24 08:00 84 05/29/24 07:50 19 95 Nasal Cannula* 2 28 05/29/24 07:50 98.0 98.0 Physical Exam General Appearance: Cooperative. Well-developed. Well-nourished. No acute distress. Pulmonary/Respiratory: Clear, bilateral breaths sounds. Cardiovascular/Chest: Regular rate and rhythm. Peripheral Pulses: 2+ Radial (R). 2+ Radial (L). 2+ Pedal (R). 2+ Pedal (L) Abdominal Exam: Normal bowel sounds. Ankle Exam: Negative ankle edema Lower extremities: Negative lower extremity edema Neuro/Mental Status: A/OX4, coherent. Thoughts/Psych: Normal thought pattern. Appropriate mood and affect. Good judgment and insight. Appearance: No acute distress. Skin Exam: Normal inspection. Normal color. Warm and dry. Labs/Diagnostic Data Labs Test 05/29/24 04:30 05/28/24 22:19 05/28/24 21:55 05/28/24 21:20 Range/Units White Blood Count 10.5 4.4-10.8 10^3/uL Red Blood Count 4.89 4.5-5.90 10^6/uL Hemoglobin 16.8 # 13.5-17.5 g/dL Hematocrit 50.2 # 41.0-53.0 % Mean Corpuscular Volume 102.6 H 80.0-100.0 fL Mean Corpuscular Hemoglobin 34.4 H 28.0-32.0 pg Mean Corpuscular Hemoglobin Concent 33.5 32.0-36.0 g/dL Red Cell Distribution Width 16.4 H 11.8-14.3 % Platelet Count 201 140-450 10^3/uL Mean Platelet Volume 8.0 6.9-10.8 fL Neutrophils (%) (Auto) 75.7 37.0-80.0 % Lymphocytes (%) (Auto) 11.0 10.0-50.0 % Monocytes (%) (Auto) 12.7 H 0.0-12.0 % Eosinophils (%) (Auto) 0.1 0.0-7.0 % Basophils (%) (Auto) 0.5 0.0-2.0 % Neutrophils # (Auto) 7.9 1.6-8.6 10 ^3/uL Lymphocytes # (Auto) 1.1 0.4-5.4 10 ^3/uL Monocytes # (Auto) 1.3 0-1.3 10 ^3/uL Eosinophils # (Auto) 0 0-0.8 10 ^3/uL Basophils # (Auto) 0.1 0-0.2 10 ^3/uL Nucleated Red Blood Cells 0.2 % Sodium Level 133 L 136-145 mmol/L Potassium Level 5.1 3.5-5.1 mmol/L Chloride Level 95 L 98-107 mmol/L Carbon Dioxide Level 28 20-31 mmol/L Anion Gap 10 5-15 Blood Urea Nitrogen 43 H 9-23 mg/dL Creatinine 9.47 H 0.700-1.30 mg/dL Glomerular Filtration Rate Calc 7 >90 mL/min BUN/Creatinine Ratio 4.5 L 10.0-20.0 Serum Glucose 85 74-106 mg/dL Calcium Level 9.2 8.7-10.4 mg/dL Total Bilirubin 0.4 0.2-1.0 mg/dL Aspartate Amino Transferase (AST) 18 13-40 U/L Alanine Aminotransferase (ALT) 11 7-40 U/L Alkaline Phosphatase 89 46-116 U/L Total Protein 7.4 5.7-8.2 g/dL Albumin 4.0 3.2-4.8 g/dL Troponin I High Sensitivity 38 </=54 ng/L Influenza Type A Antigen Negative Negative Influenza Type B Antigen Negative Negative SARS-CoV-2 Antigen (Rapid) Negative NEGATIVE Lactic Acid Level 3.5 *H 0.4-2.0 mmol/L Test 05/28/24 18:58 05/28/24 18:30 Range/Units Ammonia < 10 L 11-32 umol/L Platelet Estimate Adequate Macrocytosis Slight Plasma/Serum Blood Alcohol 4.3 <10 mg/dL Assessment Hypotension likely secondary to dehydration Rule out structural heart disease Hypertension Dyslipidemia ESRD on HD Polycystic kidney disease status post bilateral renal transplant History of tobacco use Plan/Recommendation We will continue with the following plan/recommendations (Dr. Knight): Patient seen and examined at bedside with . We will proceed with obtaining a transthoracic echocardiogram to evaluate cardiac function. We will recommend to continue vasopressors for hemodynamic support. Hypotension likely secondary to dehydration from recent nausea, vomiting, and diarrhea for three days as well as fluid removal from hemodialysis. In the setting of an unremarkable echocardiogram, there is no further inpatient cardiac workup indicated at this time. Thank you for allowing us to care for this patient. Please call with any questions or concerns. Critical care time spent: 43 minutes This medical document was created using an electronic medical record system with voice recognition software and computerized dictation system. Although this document has been carefully reviewed, there might still be some phonetic and typographical errors. Occasional wrong-word or ``sound-alike substitutions may have occurred due to the inherent limitations of voice recognition software. These areas are purely typographical due to imperfections of the software programs and do not reflect any compromise in the patient's medical care. Please read the chart carefully and recognize, using context, where these substitutions have occurred. Plan discussed with: Patient Date of Service: May 29, 2024 Billing Provider: JESSICA GREEN Cardiology Common Codes: [id number] INP/OBS CARE (High) Cardiology Consultation Codes: [id number] CONSULT <45MIN JESSICA GREEN May 29, 2024 09:41
[2024-05-29] MEDS: B-COMPLEX W/ C & FOLIC ACID(NEPHROVITE TAB) PO SCH (09:48)
[2024-05-29 10:59] LABS: Magnesium 3.1 mg/dL (1.6-2.6)
[2024-05-29] MEDS: ALPRAZolam 0.25 MG TAB PO PRN (12:54)
--- NOTE | 2024-05-29 17:22 | DVHINCON2 ---
Date of service: May 29, 2024 Referring Physician Felipe Soria Reason for Consultation Dialysis maintenance History of Present Illness 39 Y/O M with history of ESRD on HD, HTN, hyperphosphatemia, and anemia presented with chief complaint of nausea, vomiting and diarrhea. He had dialysis yesterday at [facility], it was noted that he was 7 kg under his target weight , no fluid was removed, and actually 1 L normal saline was given during dialysis. After patient returned home he was hypotensive and family found him altered therefore he was brought to the ER. Tested negative for viral panel. CT head no acute abnormality. Ct A/P shows diverticulosis. s/p 2 L NS in the ER, and was started on low dose Levophed. Nephrology consulted for maintenance of hemodialysis Past Medical History ESRD on HD, HTN, hyperphosphatemia, and anemia Past Surgical History AVF creation Allergies: Coded Allergies: NSAIDs (Verified Allergy, Intermediate, 05/28/24) Penicillins (Verified Allergy, Intermediate, 05/28/24) Sulfa Antibiotics (Verified Allergy, Mild, 05/28/24) Current Medications Current Medications Medications (Trade) Dose Ordered Sig/Jhoan Route PRN Reason Start Time Stop Time Status Last Admin Norepinephrine Bitartrate 250 ml @ 3.75 mls/hr Q24H IV 05/29/24 03:45 05/29/24 03:57 Sevelamer HCl (Renagel) 800 mg TIDWM PO 05/29/24 08:00 05/29/24 12:54 Multivit/Ca Carb/ B Cmplx/FA/Prenat (Nephro-Sirena Tablet) 1 tab DAILY PO 05/29/24 10:00 05/29/24 09:48 Vancomycin HCl 0 ml @ 0 mls/hr UD IV 05/29/24 04:15 Famotidine (Pepcid Injection) 20 mg EOD IV 05/31/24 10:00 05/29/24 12:26 DC Lorazepam (Ativan Inj) 1 mg Q8HP PRN IV ANXIETY 05/29/24 04:15 05/29/24 12:26 DC Diphenhydramine HCl (Benadryl Injection) 25 mg Q4HP PRN IV FOR ITCHING 05/29/24 04:15 05/29/24 12:26 DC Diagnostic Test (Pha) (Accu-Chek Comfort Curve T) 1 strip IQ4HR 1/4/25 08:00 05/29/24 12:26 DC 05/29/24 08:11 Insulin Human Regular (InsuLIN R) IQ4HR SC 05/29/24 08:00 05/29/24 12:26 DC Dextrose 50 ml UD PRN IV Blood Sugar LESS THAN 60 05/29/24 04:15 05/29/24 12:26 DC Sodium Chloride (Saline Lock Ns) 10 ml Q8HR IV 05/29/24 06:00 05/29/24 14:04 Acetaminophen/ Hydrocodone Bitart ([place] 5/325MG Tab) 1 tab Q4HP PRN PO MODERATE PAIN (4-6 PAIN SCALE) 05/29/24 04:15 05/29/24 12:26 DC Ondansetron HCl (Zofran) 4 mg Q4HP PRN IV NAUSEA / VOMITING 05/29/24 04:15 05/29/24 12:26 DC Docusate Sodium (Colace Capsule) 100 mg BIDPRN PRN PO FOR CONSTIPATION 05/29/24 04:15 Acetaminophen (Tylenol Tablet) 650 mg Q6HP PRN PO PAIN SCALE 1-3 OR TEMP>100.4 05/29/24 04:15 Nitroglycerin (Ntrostat Sublingual) 0.4 mg Q5MINP PRN SL FOR CHEST PAIN 05/29/24 05:15 05/29/24 12:26 DC Morphine Sulfate 2 mg Q30M PRN IV FOR CHEST PAIN 05/29/24 05:15 05/29/24 12:26 DC Sodium Chloride 1,000 ml @ 75 mls/hr [id number] IV 05/29/24 08:30 05/29/24 17:34 DC 05/29/24 08:53 Alprazolam (Xanax Tablet) 0.25 mg Q12HP PRN PO ANXIETY 05/29/24 12:30 05/29/24 12:54 Atorvastatin Calcium (Lipitor) 40 mg HS PO 05/29/24 22:00 Sodium Chloride 1,000 ml @ 125 mls/hr Q8H IV 05/29/24 17:45 05/29/24 17:46 Review of Systems As per HPI, all other systems were reviewed and are negative H&P Exam Vital Signs/I&O Vital Sign Date Time Temp Pulse Resp B/P (MAP) Pulse Ox O2 Delivery O2 Flow Rate FiO2 05/29/24 17:00 97/69 05/29/24 17:00 77 12 95 05/29/24 07:50 Nasal Cannula* 2 28 05/29/24 07:50 98.0 98.0 Physical Exam Gen: NAD HEENT: NC,AT Lungs: CTA b/l Cardiac: RRR, no murmur Abd: soft Ext: no edema Labs/Diagnostic Data Labs/Diagnostic Data Laboratory Tests Test 05/29/24 04:30 05/28/24 22:19 05/28/24 21:55 05/28/24 21:20 Range/Units White Blood Count 10.5 4.4-10.8 10^3/uL Red Blood Count 4.89 4.5-5.90 10^6/uL Hemoglobin 16.8 # 13.5-17.5 g/dL Hematocrit 50.2 # 41.0-53.0 % Mean Corpuscular Volume 102.6 H 80.0-100.0 fL Mean Corpuscular Hemoglobin 34.4 H 28.0-32.0 pg Mean Corpuscular Hemoglobin Concent 33.5 32.0-36.0 g/dL Red Cell Distribution Width 16.4 H 11.8-14.3 % Platelet Count 201 140-450 10^3/uL Mean Platelet Volume 8.0 6.9-10.8 fL Neutrophils (%) (Auto) 75.7 37.0-80.0 % Lymphocytes (%) (Auto) 11.0 10.0-50.0 % Monocytes (%) (Auto) 12.7 H 0.0-12.0 % Eosinophils (%) (Auto) 0.1 0.0-7.0 % Basophils (%) (Auto) 0.5 0.0-2.0 % Neutrophils # (Auto) 7.9 1.6-8.6 10 ^3/uL Lymphocytes # (Auto) 1.1 0.4-5.4 10 ^3/uL Monocytes # (Auto) 1.3 0-1.3 10 ^3/uL Eosinophils # (Auto) 0 0-0.8 10 ^3/uL Basophils # (Auto) 0.1 0-0.2 10 ^3/uL Nucleated Red Blood Cells 0.2 % Sodium Level 133 L 136-145 mmol/L Potassium Level 5.1 3.5-5.1 mmol/L Chloride Level 95 L 98-107 mmol/L Carbon Dioxide Level 28 20-31 mmol/L Anion Gap 10 5-15 Blood Urea Nitrogen 43 H 9-23 mg/dL Creatinine 9.47 H 0.700-1.30 mg/dL Glomerular Filtration Rate Calc 7 >90 mL/min BUN/Creatinine Ratio 4.5 L 10.0-20.0 Serum Glucose 85 74-106 mg/dL Hemoglobin A1c 5.2 <5.7 % A1C Calcium Level 9.2 8.7-10.4 mg/dL Magnesium Level 3.1 H 1.6-2.6 mg/dL Total Bilirubin 0.4 0.2-1.0 mg/dL Aspartate Amino Transferase (AST) 18 13-40 U/L Alanine Aminotransferase (ALT) 11 7-40 U/L Alkaline Phosphatase 89 46-116 U/L Total Protein 7.4 5.7-8.2 g/dL Albumin 4.0 3.2-4.8 g/dL Triglycerides Level 364 H < 150 mg/dL Cholesterol Level 237 H < 200 mg/dL LDL Cholesterol 160 H < 100 mg/dL HDL Cholesterol 32 L 40-59 mg/dL Thyroid Stimulating Hormone (TSH) 0.68 0.55-4.78 uIU/mL Troponin I High Sensitivity 38 34 </=54 ng/L Influenza Type A Antigen Negative Negative Influenza Type B Antigen Negative Negative SARS-CoV-2 Antigen (Rapid) Negative NEGATIVE Lactic Acid Level 3.5 *H 0.4-2.0 mmol/L Test 05/28/24 18:58 05/28/24 18:30 Range/Units Lactic Acid Level 3.7 *H 0.4-2.0 mmol/L Ammonia < 10 L 11-32 umol/L White Blood Count 9.3 4.4-10.8 10^3/uL Red Blood Count 5.77 4.5-5.90 10^6/uL Hemoglobin 20.1 H 13.5-17.5 g/dL Hematocrit 57.9 H 41.0-53.0 % Mean Corpuscular Volume 100.4 H 80.0-100.0 fL Mean Corpuscular Hemoglobin 34.8 H 28.0-32.0 pg Mean Corpuscular Hemoglobin Concent 34.7 32.0-36.0 g/dL Red Cell Distribution Width 16.3 H 11.8-14.3 % Platelet Count 183 140-450 10^3/uL Mean Platelet Volume 8.0 6.9-10.8 fL Neutrophils (%) (Auto) 67.3 37.0-80.0 % Lymphocytes (%) (Auto) 18.9 10.0-50.0 % Monocytes (%) (Auto) 13.4 H 0.0-12.0 % Eosinophils (%) (Auto) 0.1 0.0-7.0 % Basophils (%) (Auto) 0.3 0.0-2.0 % Neutrophils # (Auto) 6.3 1.6-8.6 10 ^3/uL Lymphocytes # (Auto) 1.8 0.4-5.4 10 ^3/uL Monocytes # (Auto) 1.3 0-1.3 10 ^3/uL Eosinophils # (Auto) 0 0-0.8 10 ^3/uL Basophils # (Auto) 0 0-0.2 10 ^3/uL Nucleated Red Blood Cells 0.4 % Platelet Estimate Adequate Macrocytosis Slight Sodium Level 132 L 136-145 mmol/L Potassium Level 3.8 3.5-5.1 mmol/L Chloride Level 86 L 98-107 mmol/L Carbon Dioxide Level 28 20-31 mmol/L Anion Gap 18 H 5-15 Blood Urea Nitrogen 37 H 9-23 mg/dL Creatinine 8.32 H 0.700-1.30 mg/dL Glomerular Filtration Rate Calc 8 >90 mL/min BUN/Creatinine Ratio 4.4 L 10.0-20.0 Serum Glucose 76 74-106 mg/dL Calcium Level 11.0 H 8.7-10.4 mg/dL Total Bilirubin 1.0 0.2-1.0 mg/dL Aspartate Amino Transferase (AST) 18 13-40 U/L Alanine Aminotransferase (ALT) 12 7-40 U/L Alkaline Phosphatase 113 46-116 U/L Troponin I High Sensitivity 33 </=54 ng/L Total Protein 9.1 H 5.7-8.2 g/dL Albumin 4.8 3.2-4.8 g/dL Plasma/Serum Blood Alcohol 4.3 <10 mg/dL Assessment ESRD on HD Hypovolemic shock Hyponatremia Lactic acidosis Hyperphosphatemia Secondary hyperparathyroidism Plan: last Hd on Friday at [facility]. 1 L fluid was given during dialysis s/p 2 L bolus in the ER yesterday normal saline at 75 cc/h this morning was started. Increased rate to 125 cc/h. next HD likely on Friday vasopressors to maintain MAP > 65 mmHg Plan discussed with: Patient GEORGINA ESPITIA MD May 29, 2024 17:22
[2024-05-29 19:30] VITALS: PULSE 96; RESP 19; O2SAT 96
--- NOTE | 2024-05-29 20:51 | DVHSR ---
APPROVED REPORT EXAM: Two-dimensional and M-mode echocardiogram with Doppler and color Doppler. Blood Pressure: 81/61 mmHg INDICATION evaluate cardiac function RISK FACTORS Height: 5'8, Weight: 160 DIMENSIONS LVDd3.3 (3.8-5.7cm)LA (2D)3.7 (1.9-4.0cm)Aortic Root4.1 (2.0-3.7cm) LVDs2.3 (2.5-4.0cm)LA (MM) (1.9-4.0cm)Aortic Cusp Exc1.1 (1.5-2.0cm) EF (%) 60.0 (55-70%)Rt. Atrium2.8 (1.9-4.0cm)Asc. Aorta cm IVSd1.2 (0.7-1.1cm)RV (D) (1.8-2.4cm) PWd1.0 (0.7-1.1cm) Mitral Valve MitralMitral Stenosis E wave0.79m/sMV Mean GR.mmHg A wave1.12m/sMV Peak GR.mmHg E/A ratio0.72D MVAcm2 DECEL [id number] 1/2 Timems Aortic Valve Aortic ValveAortic Stenosis V11.29m/Jimbo Mean GR.5mmHg V21.50m/Jimbo Peak GR.9mmHg LVOT Diameter2.1 (1.8-2.4cm)Doppler AVA2.98cm2 LEFT VENTRICLE The left ventricle is normal size. There is normal left ventricular wall thickness. The left ventricle is hyperdynamic, LVEF > 70%. Normal diastolic dysfunction. Normal wall motion. RIGHT VENTRICLE The right ventricle is grossly normal size. The right ventricular systolic function is normal. ATRIA The left atrial size is normal. The right atrium size is normal. MITRAL VALVE The mitral valve is grossly normal. There is no mitral valve regurgitation noted. PULMONIC VALVE The pulmonic valve is not well visualized. TRICUSPID VALVE The tricuspid valve is not well visualized. There is trace tricuspid regurgitation. AORTIC VALVE The aortic valve is not well visualized. No aortic regurgitation is present. GREAT VESSELS Aortic sinuses of Valsalva are mild to moderate dilated. PERICARDIAL EFFUSION No evidence of pericardial effusion. Other Information Quality : TDSRhythm : Conclusion The left ventricle is normal size. There is normal left ventricular wall thickness. The left ventricl e is hyperdynamic, LVEF > 70%. Normal diastolic dysfunction. Normal wall motion. The right ventricle is grossly normal size. The right ventricular systolic function is normal. The left and right atrial size is normal. No significant valvular abnormalities. No evidence of pericardial effusion.
[2024-05-29] MEDS: ATORVASTATIN 20 MG TAB PO SCH (21:46)
[2024-05-30 05:45] LABS: Basophils # (auto) 0 10 ^3/uL (0-0.2); Eosinophils # (auto) 0.3 10 ^3/uL (0-0.8); Hematocrit 41.2 % (41.0-53.0); Lymphocytes # (auto) 0.3 10 ^3/uL (0.4-5.4); Monocytes # (auto) 0.2 10 ^3/uL (0-1.3); Neutrophils # (auto) 3.8 10 ^3/uL (1.6-8.6); Nucleated Red Blood Cells % 0.2 %
[2024-05-30 05:47] LABS: Basophils % (auto) 0.3 % (0.0-2.0); Eosinophils % (auto) 6.4 % (0.0-7.0); Lymphocytes % (auto) 7.4 % (10.0-50.0); Mean Corpuscular Hemoglobin 34.7 pg (28.0-32.0); Mean Corpuscular Hgb Conc. 33.9 g/dL (32.0-36.0); Mean Corpuscular Volume 102.4 fL (80.0-100.0); Monocytes % (auto) 4.5 % (0.0-12.0); Neutrophils % (auto) 81.4 % (37.0-80.0); Platelet Count (auto) 134 10^3/uL (140-450); Red Blood Cells 4.03 10^6/uL (4.5-5.90); Red Cell Distribution Width 16.3 % (11.8-14.3); White Blood Cell 4.6 10^3/uL (4.4-10.8)
[2024-05-30 06:04] LABS: Alkaline Phosphatase 55 U/L (46-116); Anion Gap 12 (5-15); BUN/Creatinine Ratio 5.9 (10.0-20.0); Sodium 141 mmol/L (136-145)
--- NOTE | 2024-05-30 06:18 | DVHPN2 ---
Progress Note - Dictate Date Seen: May 30, 2024 Medical Necessity Reason Pt with a Central, PICC or Fol: No Subjective off vasopressors feeling much better vital signs Vital Sign Date Time Temp Pulse Resp B/P (MAP) Pulse Ox O2 Delivery O2 Flow Rate FiO2 05/30/24 06:00 78 20 105/69 (81) 95 05/29/24 19:30 98.7 98.7 05/29/24 19:30 Nasal Cannula* 2 28 Total Intake and Output 05/29/24 05/29/24 05/30/24 15:00 23:00 07:00 Intake Total 450 ml 775 ml 625 ml Balance 450 ml 775 ml 625 ml medications Current Medications Medications Dose Ordered Sig/Jhoan Route Start Time Stop Time Status Last Admin Dose Admin Norepinephrine Bitartrate 250 ml @ 3.75 mls/hr Q24H IV 05/29/24 03:45 05/29/24 03:57 3.75 MLS/HR Sevelamer HCl 800 mg TIDWM PO 05/29/24 08:00 05/29/24 17:59 800 MG Multivit/Ca Carb/ B Cmplx/FA/Prenat 1 tab DAILY PO 05/29/24 10:00 05/29/24 09:48 1 TAB Vancomycin HCl 0 ml @ 0 mls/hr UD IV 05/29/24 04:15 Sodium Chloride 10 ml Q8HR IV 05/29/24 06:00 05/30/24 05:39 10 ML Docusate Sodium 100 mg BIDPRN PRN PO 05/29/24 04:15 Acetaminophen 650 mg Q6HP PRN PO 05/29/24 04:15 Alprazolam 0.25 mg Q12HP PRN PO 05/29/24 12:30 05/29/24 12:54 0.25 MG Atorvastatin Calcium 40 mg HS PO 05/29/24 22:00 05/29/24 21:46 40 MG Sodium Chloride 1,000 ml @ 125 mls/hr Q8H IV 05/29/24 17:45 05/30/24 01:45 125 MLS/HR objective Gen: NAD, AAOx3 HEENT: NC,AT Lungs: CTA b/l Cardiac: RRR, no murmur Abd: soft, no tenderness Neuro: no focal deficits Ext: no edema laboratory and microbiology Laboratory Tests 05/30/24 04:50 Test 05/30/24 04:50 Range/Units Serum Glucose Pending Assessment/Plan Assessment: ESRD on HD Hypovolemic shock. Patient was 7 kg below his target weight when weighted on Friday at [facility] Hyponatremia Lactic acidosis Hyperphosphatemia Hypocalcemia Secondary hyperparathyroidism Plan: last HD on Friday at [facility]. 1 L fluid was given during dialysis s/p 2 L bolus initially in the ER yesterday Continue normal saline at 125 cc/h. corrected calcium is 7.4. will avoid giving calcium gluconate due to known history of hyperphosphatemia will give calcitriol 1 mcg PO x1. next HD on Friday Vasopressors have been tapered off since 2 AM Patient is tolerating diet and and is no longer having diarrhea. Cleared from Nephrology for discharge. he can have his next dialysis tomorrow- Friday at [facility] Plan discussed with: Patient, Other GEORGINA ESPITAI MD May 30, 2024 06:18
[2024-05-30 06:24] LABS: Carbon Dioxide 20 mmol/L (20-31); Chloride 109 mmol/L (98-107); Potassium 3.4 mmol/L (3.5-5.1)
[2024-05-30 06:25] LABS: Alanine Aminotransferase < 9 U/L (7-40); Albumin 2.3 g/dL (3.2-4.8); Aspartate Aminotransferase 9 U/L (13-40); Bilirubin, Total 0.2 mg/dL (0.2-1.0); Blood Urea Nitrogen 51 mg/dL (9-23); Glucose 59 mg/dL (74-106); Total Protein 4.5 g/dL (5.7-8.2)
[2024-05-30 06:27] LABS: Calcium 5.6 mg/dL (8.7-10.4)
--- NOTE | 2024-05-30 06:27 | DVH ---
CHEST RADIOGRAPH Indication: f/o chf Technique: Single frontal view of the chest was obtained COMPARISON: XY CHEST PORTABLE on DOS: 05/28/24 FINDINGS: Lines and Tubes: None Lungs: Right lower lobe airspace disease, increased. Pleura: No effusion. No pneumothorax. Cardiomediastinal contours: Unremarkable Bones: Unremarkable IMPRESSION: Right lower lobe airspace disease, increased.
[2024-05-30] MEDS ORDERED: CALCITRIOL 0.25 MCG CAP PO ONE (06:45)
[2024-05-30 07:53] VITALS: PULSE 78; RESP 21; TEMP 97.7; O2SAT 95
[2024-05-30 08:59] VITALS: BP 123/69; PULSE 74; RESP 13; O2SAT 98
--- NOTE | 2024-05-30 09:32 | DVHDSRES ---
Discharge Summary Date of Admission Resident Creating Document: ITZEL GRAVES RESIDENT May 29, 2024 at 05:10 Date of Discharge: May 30, 2024 Admitting Diagnosis ALOC Labs/Diagnostic Data: Laboratory Results Test 05/30/24 04:50 05/29/24 04:30 05/28/24 22:19 05/28/24 21:55 White Blood Count 4.6 10^3/uL (4.4-10.8) Red Blood Count 4.03 10^6/uL (4.5-5.90) Hemoglobin 14.0 g/dL (13.5-17.5) Hematocrit 41.2 % (41.0-53.0) Mean Corpuscular Volume 102.4 fL (80.0-100.0) Mean Corpuscular Hemoglobin 34.7 pg (28.0-32.0) Mean Corpuscular Hemoglobin Concent 33.9 g/dL (32.0-36.0) Red Cell Distribution Width 16.3 % (11.8-14.3) Platelet Count 134 10^3/uL (140-450) Mean Platelet Volume 7.9 fL (6.9-10.8) Neutrophils (%) (Auto) 81.4 % (37.0-80.0) Lymphocytes (%) (Auto) 7.4 % (10.0-50.0) Monocytes (%) (Auto) 4.5 % (0.0-12.0) Eosinophils (%) (Auto) 6.4 % (0.0-7.0) Basophils (%) (Auto) 0.3 % (0.0-2.0) Neutrophils # (Auto) 3.8 10 ^3/uL (1.6-8.6) Lymphocytes # (Auto) 0.3 10 ^3/uL (0.4-5.4) Monocytes # (Auto) 0.2 10 ^3/uL (0-1.3) Eosinophils # (Auto) 0.3 10 ^3/uL (0-0.8) Basophils # (Auto) 0 10 ^3/uL (0-0.2) Nucleated Red Blood Cells 0.2 % Sodium Level 141 mmol/L (136-145) Potassium Level 3.4 mmol/L (3.5-5.1) Chloride Level 109 mmol/L (98-107) Carbon Dioxide Level 20 mmol/L (20-31) Anion Gap 12 (5-15) Blood Urea Nitrogen 51 mg/dL (9-23) Creatinine 8.67 mg/dL (0.700-1.30) Glomerular Filtration Rate Calc 7 mL/min (>90) BUN/Creatinine Ratio 5.9 (10.0-20.0) Serum Glucose 59 mg/dL (74-106) Calcium Level 5.6 mg/dL (8.7-10.4) Total Bilirubin 0.2 mg/dL (0.2-1.0) Aspartate Amino Transferase (AST) 9 U/L (13-40) Alanine Aminotransferase (ALT) < 9 U/L (7-40) Alkaline Phosphatase 55 U/L (46-116) Total Protein 4.5 g/dL (5.7-8.2) Albumin 2.3 g/dL (3.2-4.8) Random Vancomycin Level 8.2 ug/mL (5-10) Hemoglobin A1c 5.2 % A1C (<5.7) Magnesium Level 3.1 mg/dL (1.6-2.6) Triglycerides Level 364 mg/dL (< 150) Cholesterol Level 237 mg/dL (< 200) LDL Cholesterol 160 mg/dL (< 100) HDL Cholesterol 32 mg/dL (40-59) Thyroid Stimulating Hormone (TSH) 0.68 uIU/mL (0.55-4.78) Troponin I High Sensitivity 38 ng/L (</=54) Influenza Type A Antigen Negative (Negative) Influenza Type B Antigen Negative (Negative) SARS-CoV-2 Antigen (Rapid) Negative (NEGATIVE) Test 05/28/24 21:20 05/28/24 18:58 05/28/24 18:30 Lactic Acid Level 3.5 mmol/L (0.4-2.0) Ammonia < 10 umol/L (11-32) Platelet Estimate Adequate Macrocytosis Slight Plasma/Serum Blood Alcohol 4.3 mg/dL (<10) Other Laboratory Tests 05/30/24 04:50 Brief Hx & Hospital Course: Hospitalization summary/ Assesment: A 39-year-old male with a history of end- stage renal disease on hemodialysis, hypertension, and polycystic kidney disease, who had a bilateral kidney transplant, presented to the ED with altered consciousness. Over the past three days, he experienced nausea, vomiting, diarrhea, and confusion. After dialysis, he became hypotensive (70s/40s) and his mental status worsened, prompting a 911 call. In the ED, his labs showed elevated creatinine (8.32) and troponin (33), with low blood pressure (85/42) and oxygen saturation (90%). A head CT was normal. He was started on IV Levophed and admitted for further evaluation and management. His past medical history includes ESRD, hypertension, and polycystic kidney disease, with no significant family or social history. Medical conditions treated in hospital #Metabolic encephalopathy : Altered mental status #Generalized weakness #Altered mental status, unspecified #Nausea, vomiting, and diarrhea #Severe sepsis with septic shock # macrocytosis # chronic alcoholism, alcohol use disorder # dyslipidemia # protein energy malnutrition, mild # hypokalemia # ESRD secondary to polycystic kidney disease # history of bilateral kidney transplant, failed. # Essential hypertension Patient care and plan discussed with Dr. Medina . Patient left AMA before patient could be evaluated. Discharge needed total 37 minutes of detailed discussion. Consults/Reason for consult cardiology nephrology Operations or Procedures [place] [id number] Ph: [phone] DIAGNOSTIC IMAGING Diagnostic Imaging Report : [id number] Signed PATIENT: COLEMAN TEAGUE ACCT: [id number] UNIT: [id number] : 1985 LOC: [facility] ROOM / BED: [address] [place] [address] AGE / SEX: 39 / M ADM STATUS: ADM IN SERVICE 0800 ORDERING PHYSICIAN: SITA MITCHELL MD PROCEDURE(s): CXRP - CHEST PORTABLE REASON: f/o chf ORDER NUMBER(s): [id number], ACCESSION NUMBER(s): [id number] CHEST RADIOGRAPH Indication: f/o chf Technique: Single frontal view of the chest was obtained COMPARISON: XY CHEST PORTABLE on DOS: 05/28/24 FINDINGS: Lines and Tubes: None Lungs: Right lower lobe airspace disease, increased. Pleura: No effusion. No pneumothorax. Cardiomediastinal contours: Unremarkable Bones: Unremarkable IMPRESSION: Right lower lobe airspace disease, increased. ATED BY: JOHNNY MARTINEZ MD DICTATED DATE/TIME: 05/30/24622 SIGNED BY: JOHNNY MARTINEZ MD SIGNED DATE/TIME: 05/30/24622 CC: [address] [id number] Ph: [phone] DIAGNOSTIC IMAGING Diagnostic Imaging Report : [id number] Signed PATIENT: COLEMAN TEAGUE ACCT: [id number] UNIT: [id number] : 1985 LOC: ER ROOM / BED: / AGE / SEX: 39 / M ADM STATUS: REG ER SERVICE 20 ORDERING PHYSICIAN: MARCUS VILLALTA MD PROCEDURE(s): HWOCT - HEAD WITHOUT CONTRAST REASON: repeat for aloc ORDER NUMBER(s): [id number], ACCESSION NUMBER(s): [id number] EXAM: CT HEAD WITHOUT CONTRAST INDICATION: repeat for aloc TECHNIQUE: CT of the head without intravenous contrast. Radiation Dose : 1. Head: CT Dose: CTDI volume is 66 mGy. Dose-length product is 1430 mGy*cm The dose indicators for CT are the volume Computed Tomography (CT) Dose Index (CTDIvol) and the Dose Length Product (DLP), and are measured in units of mGy and mGy-cm, respectively. These indicators are not patient dose, but values generated from the CT scanner acquisition factors. The report includes radiation exposure data for exposures received during this examination. COMPARISON: CT HEAD WITHOUT CONTRAST on DOS: 05/28/24 FINDINGS: There is no evidence of acute intracranial hemorrhage, extra-axial collection, mass effect, midline shift, herniation or hydrocephalus. The ventricles, sulci and cisterns are age appropriate. The jarquin-white differentiation is intact. Patchy periventricular and subcortical white matter hypoattenuation is nonspecific but may be related to small vessel ischemic disease. The visualized paranasal sinuses and mastoid air cells are clear. The surrounding soft tissues and osseous structures are unremarkable. IMPRESSION: No acute intracranial abnormality. ATED BY: LAKSHMI SANCHEZ DO DICTATED DATE/TIME: 05/28/242323 SIGNED BY: LAKSHMI SANCHEZ DO SIGNED DATE/TIME: 05/28/242323 CC: [place] [id number] Ph: [phone] DIAGNOSTIC IMAGING Diagnostic Imaging Report : [id number] Signed PATIENT: COLEMAN TEAGUE ACCT: [id number] UNIT: [id number] : 1985 LOC: ER ROOM / BED: / AGE / SEX: 39 / M ADM STATUS: REG ER SERVICE 03 ORDERING PHYSICIAN: MARCUS VILLALTA MD PROCEDURE(s): ABPL - CT AB PEL WO CON-NO ORAL OR IV REASON: abd pain nvd ORDER NUMBER(s): [id number], ACCESSION NUMBER(s): [id number] Exam: CT CT AB PEL WO CON-NO ORAL OR IV History: abd pain nvd Comparison Study: None TECHNIQUE: Multidetector CT of the abdomen and pelvis was performed from lung bases to pubic symphysis. Imaging was performed without IV contrast. Axial, coronal, and sagittal multiplanar reformats were obtained from the axial data set by the technologist. RADIATION DOSE: DLP 619.88 mGy.cm; CTDI vol 11.84 mGy. Findings: Lungs: The lung bases are clear. Heart: The visualized heart is unremarkable. No cardiomegaly or pericardial effusion. Liver: Unremarkable. Gallbladder: Unremarkable. Spleen: Unremarkable Pancreas: Unremarkable Adrenals: Unremarkable Kidneys: Marked bilateral renal atrophy. Bilateral renal cysts. GI tract: Diverticulosis without evidence of acute diverticulitis. : Unremarkable. Vasculature: Moderate aortoiliac atherosclerosis. Lymphadenopathy: Absent Peritoneum: No ascites. 4.7 x 4.2 cm calcified lesion in the right lower quadrant. Musculoskeletal: Unremarkable Soft tissues: Unremarkable Impression: 1. No acute abdominopelvic abnormalities. 2. Diverticulosis without evidence of acute diverticulitis. 3. 4.7 x 4.2 cm calcified lesion in the right lower quadrant, of uncertain etiology. ATED BY: FE RAYMOND DO DICTATED DATE/TIME: 05/28/241941 SIGNED BY: FE RAYMOND DO SIGNED DATE/TIME: 05/28/241941 CC: [address] [address] Ph: [phone] DIAGNOSTIC IMAGING Diagnostic Imaging Report : [id number] Signed PATIENT: COLEMAN TEAGUE ACCT: [id number] UNIT: [id number] : 1985 LOC: ER ROOM / BED: / AGE / SEX: 39 / M ADM STATUS: REG ER SERVICE 182 ORDERING PHYSICIAN: MARCUS VILLALTA MD PROCEDURE(s): HWOCT - HEAD WITHOUT CONTRAST REASON: aloc ORDER NUMBER(s): [id number], ACCESSION NUMBER(s): [id number] EXAM: CT HEAD WITHOUT CONTRAST INDICATION: aloc TECHNIQUE: CT of the head without intravenous contrast. Radiation Dose : 1. Head: CT Dose: CTDI volume is 69.01 mGy. Dose-length product is 2426.03 mGy*cm The dose indicators for CT are the volume Computed Tomography (CT) Dose Index (CTDIvol) and the Dose Length Product (DLP), and are measured in units of mGy and mGy-cm, respectively. These indicators are not patient dose, but values generated from the CT scanner acquisition factors. The report includes radiation exposure data for exposures received during this examination. COMPARISON: None FINDINGS: There is no evidence of acute intracranial hemorrhage, extra-axial collection, mass effect, midline shift, herniation or hydrocephalus. The ventricles, sulci and cisterns are age appropriate. The jarquin-white differentiation is intact. Patchy periventricular and subcortical white matter hypoattenuation is nonspecific but may be related to small vessel ischemic disease. The visualized paranasal sinuses and mastoid air cells are clear. The surrounding soft tissues and osseous structures are unremarkable. IMPRESSION: Limited evaluation due to motion artifact. No definitive evidence of acute intracranial abnormalities. ATED BY: LAKSHMI SANCHEZ DO DICTATED DATE/TIME: 05/28/241935 SIGNED BY: LAKSHMI SANCHEZ DO SIGNED DATE/TIME: 05/28/241935 CC: [address] [id number] Ph: [phone] DIAGNOSTIC IMAGING Diagnostic Imaging Report : [id number] Signed PATIENT: COLEMAN TEAGUE ACCT: [id number] UNIT: [id number] : 1985 LOC: ER ROOM / BED: / AGE / SEX: 39 / M ADM STATUS: REG ER SERVICE 21 ORDERING PHYSICIAN: MARCUS VILLALTA MD PROCEDURE(s): CXRP - CHEST PORTABLE REASON: aloc ORDER NUMBER(s): [id number], ACCESSION NUMBER(s): [id number] CHEST RADIOGRAPH Indication: aloc Technique: Single frontal view of the chest was obtained Comparison: None Findings/ IMPRESSION: Surgical clips projecting over the superior mediastinum/ lower neck. Prominent interstitial opacities bilaterally diffusely which may be due to mild pulmonary edema. No pleural effusions. No pneumothorax. ATED BY: LAKSHMI SANCHEZ DO DICTATED DATE/TIME: 05/28/241934 SIGNED BY: LAKSHMI SANCHEZ DO SIGNED DATE/TIME: 05/28/241934 CC: Condition at Discharge: Undetermined Final Diagnosis/Problems List #Metabolic encephalopathy : Altered mental status #Generalized weakness #Altered mental status, unspecified #Nausea, vomiting, and diarrhea #Severe sepsis with septic shock # macrocytosis # chronic alcoholism, alcohol use disorder # dyslipidemia # protein energy malnutrition, mild # hypokalemia # ESRD secondary to polycystic kidney disease # history of bilateral kidney transplant, failed. # Essential hypertension Discharge Disposition: AMA Discharge Instruct/Medications Diet: Renal Activity: No Restrictions, As Tolerated Follow Up/Referral: PCP visit within 1-2 weeks ESRD/renal management with dialysis. Medications: As above, as per JUL Discharge Statement: "Patient was advised to return to the ER or call 911 if any headaches, dizziness, shortness of breath, chest pain, abdominal pain, bleeding, fevers, or worsening of medical condition. Patient was counseled about treatment plan, medications, possible side effects, patientverbalized understanding. All questions were answered to the best of my ability. This discharge took greater then 30 minutes in planning, reviewing documentation, counseling the patient, and discussing with other team members." ASSESSMENT ASSESSMENT Assessment ITZEL GRAVES RESIDENT May 30, 2024 09:32
[2024-05-31] MEDS ORDERED: FAMOTIDINE (10MG/ML) 2ML VL IV SCH (10:00)
[2024-05-31 13:42] LABS: Hepatitis B Surface Antigen Negative (Negative)
[2024-05-31 14:01] LABS: Hepatitis A Ab IgM Negative; Hepatitis B Core IgM Negative (Negative); Hepatitis C Antibody Negative (Negative)
== END 2024-05-30 08:44 | disposition left against medical advice (07) | DRG 871 ==
LOC: EDBD 17:19 → ER 17:19 → TELE 05-29 05:10
PROVIDERS: ADMIT Nurse Practitioner Family; ATTEND Nurse Practitioner Family
DX: A41.9 Sepsis, unspecified organism (principal); G93.41 Metabolic encephalopathy; R65.21 Severe sepsis with septic shock; N18.6 End stage renal disease; R57.1 Hypovolemic shock; Q61.3 Polycystic kidney, unspecified; I12.0 Hypertensive chronic kidney disease with stage 5 chronic kidney disease or end stage renal disease; E87.1 Hypo-osmolality and hyponatremia; E87.20 Acidosis, unspecified; N25.81 Secondary hyperparathyroidism of renal origin; E44.1 Mild protein-calorie malnutrition; Z20.822 Contact with and (suspected) exposure to COVID-19; I95.89 Other hypotension; E78.5 Hyperlipidemia, unspecified; E83.39 Other disorders of phosphorus metabolism; E83.51 Hypocalcemia; D75.89 Other specified diseases of blood and blood-forming organs; Z53.29 Procedure and treatment not carried out because of patient's decision for other reasons; E87.6 Hypokalemia; Z68.24 Body mass index [BMI] 24.0-24.9, adult; Z99.2 Dependence on renal dialysis; Z87.891 Personal history of nicotine dependence; Z88.0 Allergy status to penicillin; Z88.2 Allergy status to sulfonamides; Z88.6 Allergy status to analgesic agent
CPT/HCPCS: 36415; 70450; 71045; 74176; 80053; 80061; 80074; 80202; 80320; 82140; 83036; 83605; 83735; 84443; 84484; 85025; 87040; 87426; 87804; 93306; 99291; G0378